=== PATIENT | male | born 1945 | race Caucasian/White ===

== ENCOUNTER 2023-04-14 08:31 | Emergency (ER) | payer BC ==
[~2023-04-14] VITALS: Ht 185.4 cm; Wt 85.3 kg
[2023-04-14 08:41] VITALS: BP_SYST 157
--- NOTE | 2023-04-14 08:47 | NUR ---
Patient GEMINI Koo for /o generalized weakness since last night. Patient said that when he woke up today, he was unable to get out of bed and needed his and family member to help him get up. The family called ambulance to be taken to hospital. Will continue to monitor.
--- NOTE | 2023-04-14 09:02 | NUR ---
Received patient with staff and nursing students. Patient is stable with no signs or symptoms of acute distress at this time.
[2023-04-14 09:08] LABS: BASOPHILS % (AUTO) 0.5 % (0.0-2.0); EOSINOPHILS % (AUTO) 0.1 % (0.0-4.0); HEMATOCRIT 47.7 % (36-54); LYMPHOCYTES # (AUTO) 0.3 K/uL (1.0-5.5); LYMPHOCYTES % (AUTO) 3.7 % (20.5-51.5); MEAN CORPUSCULAR HEMOGLOBIN 31 pg (27-31); MEAN CORPUSCULAR HGB CONC 34 % (32-36); MEAN CORPUSCULAR VOLUME 91 fL (79.0-98.0); MONOCYTES # (AUTO) 0.8 K/uL (0.0-1.0); MONOCYTES % (AUTO) 8.6 % (1.7-9.3); NEUTROPHILS % (AUTO) 87.1 % (40.0-70.0); RED BLOOD CELL COUNT(AUTO) 5.22 MIL/uL (4.2-6.2); RED CELL DISTRIBUTION WIDTH 13.6 % (9.0-15.0); WHITE BLOOD COUNT (AUTO) 9.2 K/uL (4.8-10.8)
[2023-04-14 09:18] LABS: ANION GAP 9 (5-15); CALCIUM 8.4 mg/dL (8.4-11.0); CHLORIDE 96 mmol/L (98-107); GLUCOSE 262 mg/dL (70-99); UREA NITROGEN, BLOOD 26 mg/dL (8-21)
[2023-04-14 09:26] LABS: ALANINE AMINOTRANSFERASE 47 U/L (12-78); AMYLASE 18 U/L (0-100); ASPARTATE AMINOTRANSFERASE 41 U/L (10-37); C-REACTIVE PROTEIN QUANT 13.4 mg/dL (0-0.5); LIPASE 23 U/L (73-393); TOTAL BILIRUBIN 1.9 mg/dL (0.0-1.0)
--- NOTE | 2023-04-14 09:35 | NUR ---
Patient having difficulty with catheterization. RN and WC students assisted with catheterization and between patient, nurse and students and instructor, unable to cath patient. Coude cath ontained and attempted again. Patient given water and fluid to insure urine presnt in bladder.
[2023-04-14 09:58] LABS: ACETONE, SERUM SMALL (NEGATIVE)
[2023-04-14 10:31] LABS: PLATELET COUNT (AUTO) 94 K/uL (130-430)
[2023-04-14] MEDS ORDERED: NITR-85 PO (11:08)
[2023-04-14] MEDS ORDERED: cefTRIAXone 1 GM in LIDOCAINE 1%, 20 ML MDV 2.1 ML IM ONE (11:15)
[2023-04-14] MEDS ORDERED: NACL 0.9% 1,000 ML IV ONE (11:15)
[2023-04-14 12:00] VITALS: BP_SYST 117
--- NOTE | 2023-04-14 12:05 | NUR ---
Patient given written and verbal discharge instructions and verbalizes understanding. ER MD discussed with patient the results and treatment provided. Patient in stable condition. ID arm band removed. IV catheter removed intact and dressing applied, no active bleeding. Rx of rocephin given. Patient educated on pain management and to follow up with PMD. Pain Scale 0/10. Opportunity for questions provided and answered. Medication side effect fact sheet provided.
== END 2023-04-14 12:05 | disposition home or self-care (01) ==
LOC: SED 08:31
DX: R53.1 Weakness (principal); R11.10 Vomiting, unspecified; E11.9 Type 2 diabetes mellitus without complications; I10 Essential (primary) hypertension; Z88.2 Allergy status to sulfonamides; Z91.013 Allergy to seafood; Z79.899 Other long term (current) drug therapy
CPT/HCPCS: 99285; 96365; 70450; 71045; 80053; 82009; 82150; 82550; 83690; 85025; 86140; 87040; 84484; 36415; 93005; 76376; 83605; J0696; J2001

== ENCOUNTER 2024-01-30 06:30 | Emergency (ER) | payer BC ==
[~2024-01-30] VITALS: Ht 180.3 cm; Wt 74.8 kg
[~2024-01-30 06:30] MED LIST: NITR-85 PO
[2024-01-30 06:45] VITALS: BP_SYST 145; PULSE 80; RESP 16; TEMP 98; O2SAT 97
[2024-01-30 06:59] LABS: BASOPHILS % (AUTO) 0.4 % (0.0-2.0); EOSINOPHILS # (AUTO) 0.2 K/uL (0.0-0.4); EOSINOPHILS % (AUTO) 2.3 % (0.0-4.0); HEMATOCRIT 45.9 % (36-54); HEMOGLOBIN 15.7 g/dL (14.0-18.0); MEAN CORPUSCULAR HEMOGLOBIN 31 pg (27-31); MEAN CORPUSCULAR HGB CONC 34 % (32-36); MEAN CORPUSCULAR VOLUME 92 fL (79.0-98.0); MONOCYTES # (AUTO) 0.5 K/uL (0.0-1.0); NEUTROPHILS # (AUTO) 5.5 K/uL (1.8-7.7); NEUTROPHILS % (AUTO) 76.3 % (40.0-70.0); PLATELET COUNT (AUTO) 178 K/uL (130-430); RED BLOOD CELL COUNT(AUTO) 5.02 MIL/uL (4.2-6.2); RED CELL DISTRIBUTION WIDTH 13.7 % (9.0-15.0); WHITE BLOOD COUNT (AUTO) 7.3 K/uL (4.8-10.8)
[2024-01-30 07:15] LABS: ANION GAP 7 (5-15); CALCIUM 8.8 mg/dL (8.4-11.0); CARBON DIOXIDE 29 mmol/L (23-29); CHLORIDE 101 mmol/L (98-107); CREATININE 0.88 mg/dL (0.55-1.30); GLUCOSE 284 mg/dL (74-106); POTASSIUM 4.2 mmol/L (3.5-5.1); SODIUM SERUM 137 mmol/L (136-145); UREA NITROGEN, BLOOD 19 mg/dL (8-21)
[2024-01-30 09:00] LABS: BILIRUBIN,URINE NEGATIVE (NEGATIVE); BLOOD, URINE 2+ (NEGATIVE); CLARITY/URINE CLEAR (CLEAR); COLOR,URINE YELLOW (YELLOW); GLUCOSE,URINE 3+ (NEGATIVE); KETONES,URINE NEGATIVE (NEGATIVE); LEUKOCYTE ESTERASE ,URINE TRACE (NEGATIVE); NITRITE, URINE NEGATIVE (NEGATIVE); PROTEIN URINE NEGATIVE (NEGATIVE); UROBILINOGEN,URINE 0.2 (0.2-1.0)
[2024-01-30 09:16] LABS: BACTERIA,URINE RARE /HPF (None Seen)
[2024-01-30] MEDS ORDERED: LEVO-62 PO (09:28)
[2024-01-30] MEDS ORDERED: HYDR-3927 PO (09:28)
[2024-01-30] MEDS ORDERED: IBUP-1969 PO (09:28)
[2024-01-30] MEDS: cefTRIAXone 250 MG VIAL IM ONE (09:34)
[2024-01-30] MEDS: HYDROcodone/ACETAMIN 10-325 MG TAB PO ONE (09:34)
[2024-01-30] MEDS: IBUPROFEN 600 MG TABLET PO ONE (09:34)
[2024-01-30 09:48] VITALS: BP_SYST 146; PULSE 71; RESP 18; TEMP 98; O2SAT 95
== END 2024-01-30 09:41 | disposition home or self-care (01) ==
LOC: SED 06:30
DX: N45.1 Epididymitis (principal); N43.3 Hydrocele, unspecified; I86.1 Scrotal varices; E11.9 Type 2 diabetes mellitus without complications; I10 Essential (primary) hypertension; Z88.2 Allergy status to sulfonamides; Z91.013 Allergy to seafood; Z79.899 Other long term (current) drug therapy
CPT/HCPCS: 99285; 80048; 81001; 85025; 36415; 76870; 96372; 81000; 81015; J0696